=== PATIENT | male | born 1995 | race African-American/Black ===

== ENCOUNTER 2017-07-30 20:05 | Emergency (ER) | payer SELFPAY ==
[~2017-07-30] VITALS: Ht 182.9 cm; Wt 132.0 kg
[2017-07-30] MEDS ORDERED: SODIUM CHLORIDE 0.9% 1,000 ML IV ONE (23:00)
[2017-07-30] MEDS ORDERED: LEVETIRACETAM 500MG PREMIX 100 ML IV ONE (23:00)
[2017-07-31 01:06] VITALS: BP 136/86
== END 2017-07-31 01:12 | disposition home or self-care (01) ==
LOC: ER 20:05
DX: S00.512A Abrasion of oral cavity, initial encounter (principal); G40.409 Other generalized epilepsy and epileptic syndromes, not intractable, without status epilepticus; X58.XXXA Exposure to other specified factors, initial encounter; Y93.89 Activity, other specified; Y92.89 Other specified places as the place of occurrence of the external cause; Y99.8 Other external cause status
CPT/HCPCS: 96365; 99284; J1953; J7030

== ENCOUNTER 2021-03-22 08:51 | Emergency (ER) | payer OTHER ==
[~2021-03-22] VITALS: Ht 182.9 cm; Wt 109.0 kg
[2021-03-22] MEDS ORDERED: SODIUM CHLORIDE 0.9% 1,000 ML IV ONE (09:00)
[2021-03-22] MEDS ORDERED: LEVETIRACETAM 1000MG PREMIX 100 ML IV ONE (09:00)
[2021-03-22] MEDS ORDERED: LORAZEPAM 2MG/ML CPJ IV ONE (09:00)
[2021-03-22 09:25] LABS: BASOPHILS % 1.2 % (0.0-2.0); EOSINOPHILS % 0.1 % (0.0-5.0); HEMATOCRIT. 55.4 % (42.0-52.0); HEMOGLOBIN. 17.3 g/dL (14.0-18.0); LYMPHOCYTES % 21.5 % (20.0-50.0); MEAN CORPUSCULAR HEMOGLOBIN 23.9 pg (28.0-32.0); MEAN CORPUSCULAR VOLUME 76.7 fL (80.0-94.0); MEAN PLATELET VOLUME 8.6 fl (7.4-10.4); MONOCYTES % 7.9 % (2.0-8.0); NEUTROPHILS % 69.3 % (40.0-76.0); PLATELET 239 x1000/uL (130-400); RED BLOOD CELL COUNT 7.23 mill/uL (4.7-6.1); RED CELL DISTRIBUTION WIDTH 15.3 % (11.6-14.6)
[2021-03-22] MEDS ORDERED: LEVETIRACETAM 1000MG PREMIX 100 ML IV NR (09:30)
[2021-03-22 09:47] LABS: CHLORIDE 103 mEq/L (98-107)
[2021-03-22 09:51] LABS: ETHANOL BLOOD < 10 mg/dL
[2021-03-22] MEDS ORDERED: LEVE750T4 MT (11:22)
[2021-03-22 12:09] VITALS: BP 124/81
== END 2021-03-22 12:10 | disposition home or self-care (01) ==
LOC: ER 08:51
DX: G40.909 Epilepsy, unspecified, not intractable, without status epilepticus (principal); R00.0 Tachycardia, unspecified; Z20.822 Contact with and (suspected) exposure to COVID-19
CPT/HCPCS: 36415; 71045; 80053; 80320; 82962; 85025; 93005; 96374; 96375; 99285; C9803; J1953; J2060; J7030; U0003; U0005; Z7610; G0480

== ENCOUNTER 2025-01-19 14:15 | Emergency (ER) | payer OTHER ==
[~2025-01-19] VITALS: Ht 180.3 cm; Wt 105.0 kg
[~2025-01-19 14:15] MED LIST: LEVE750T4 MT
[2025-01-19 14:20] VITALS: O2SAT 98
[2025-01-19 15:10] LABS: BASOPHILS % 0.6 % (0.0-2.0); DIFFERENTIAL COMMENT 0; EOSINOPHILS % 0.9 % (0.0-5.0); HEMOGLOBIN. 14.7 g/dL (14.0-18.0); MEAN CORPUSCULAR HGB CONC 31.3 g/dL (31.0-37.0); MEAN CORPUSCULAR VOLUME 73.5 fL (80.0-94.0); MEAN PLATELET VOLUME 8.3 fl (7.4-10.4); MONOCYTES % 4.9 % (2.0-8.0); NEUTROPHILS % 67.6 % (40.0-76.0); PLATELET 235 x1000/uL (130-400); RED CELL DISTRIBUTION WIDTH 16.2 % (11.6-14.6); WHITE BLOOD COUNT 6.2 x1000/uL (4.5-11.0)
[2025-01-19] MEDS: LEVETIRACETAM 1000MG PREMIX 100 ML IV ONE (15:14)
[2025-01-19 15:17] LABS: CHLORIDE 109 mEq/L (98-107); SODIUM 141 mEq/L (136-145)
[2025-01-19 15:18] LABS: CARBON DIOXIDE 23 mEq/L (21-32)
[2025-01-19 15:19] LABS: CALCIUM 9.1 mg/dL (8.7-10.4)
[2025-01-19 15:24] LABS: CREATININE 1.1 mg/dL (0.6-1.3); GLUCOSE 107 mg/dL (70-105); UREA NITROGEN BLOOD 13 mg/dL (9-23)
[2025-01-19] MEDS ORDERED: LORAZEPAM 2MG/ML INJ IV ONE (16:00)
[2025-01-19] MEDS: MORPHINE SULFATE 4 MG/ML INJ (FOR IV/IM USE) IV ONE (16:23)
[2025-01-19] MEDS: LORAZEPAM 2MG/ML UD SYRINGE IV NR (16:56)
[2025-01-19] MEDS: LACOSAMIDE 100MG/10ML ORAL SOLN GT STA (18:15)
[2025-01-19 18:28] VITALS: TEMP 36.7
[2025-01-19 20:28] VITALS: BP 130/71; PULSE 80; RESP 18; O2SAT 94
== END 2025-01-19 20:51 | disposition short-term general hospital (02) ==
LOC: ER 14:15 → EDBEDREQ 15:53 → CANBEDREQ 18:31 → ER 20:51
DX: R56.9 Unspecified convulsions (principal); Z79.899 Other long term (current) drug therapy
CPT/HCPCS: 80048; 85025; 36415; 80339; 71045; 73030; 70450; 96365; 96375; 99285; J1953; J2060; J2270; Z7610

== ENCOUNTER 2025-08-12 18:10 | Emergency (ER) | payer OTHER ==
[~2025-08-12] VITALS: Ht 182.9 cm; Wt 100.0 kg
[2025-08-12] MEDS: KETOROLAC 15MG/ML VIAL IV ONE (18:27)
[2025-08-12] MEDS: SODIUM CHLORIDE 0.9% 1,000 ML IV ONE (18:27)
[2025-08-12] MEDS: LEVETIRACETAM 1000MG PREMIX 100 ML IV SCH (18:28)
[2025-08-12] MEDS: LORAZEPAM 2MG/ML UD SYRINGE IV SCH (18:53)
[2025-08-12 18:54] LABS: BASOPHILS % 0.7 % (0.0-2.0); EOSINOPHILS % 1.1 % (0.0-5.0); HEMATOCRIT. 52.5 % (42.0-52.0); HEMOGLOBIN. 15.5 g/dL (14.0-18.0); LYMPHOCYTES % 33.6 % (20.0-50.0); MEAN PLATELET VOLUME 8.8 fl (7.4-10.4); MONOCYTES % 8.9 % (2.0-8.0); NEUTROPHILS % 55.7 % (40.0-76.0); PLATELET 248 x1000/uL (130-400); RED BLOOD CELL COUNT 6.73 mill/uL (4.7-6.1); RED CELL DISTRIBUTION WIDTH 16.5 % (11.6-14.6)
[2025-08-12 19:05] LABS: CREATININE 1.4 mg/dL (0.6-1.3); UREA NITROGEN BLOOD 11 mg/dL (9-23)
[2025-08-12 19:06] LABS: ETHANOL BLOOD < 10 mg/dL (<10)
[2025-08-12 19:07] LABS: ASPARTATE AMINOTRANSFERASE 40 IU/L (<34); BILIRUBIN DIRECT 0.2 mg/dL (<=3.0); BILIRUBIN TOTAL 0.7 mg/dL (0.1-1.0); PROTEIN TOTAL 7.4 g/dL (6.0-8.3)
[2025-08-12] MEDS: MORPHINE SULFATE 4 MG/ML INJ (FOR IV/IM USE) IV NR (20:29)
[2025-08-12] MEDS ORDERED: LEVETIRACETAM 1,000MG in NACL 100ML PREMIX IV SCH (21:00)
[2025-08-12] MEDS ORDERED: PROPOFOL 200MG/20ML VIAL IV ONE (21:30)
[2025-08-12 23:25] VITALS: O2SAT 100
[2025-08-12] MEDS: PROPOFOL 200MG/20ML VIAL IV NR (23:37)
[2025-08-12 23:46] LABS: CLARITY URINE CLOUDY (CLEAR); COLOR URINE YELLOW (YELLOW); GLUCOSE URINE NEGATIVE (NEGATIVE); KETONES URINE NEGATIVE (NEGATIVE); LEUKOCYTE ESTERASE URINE NEGATIVE (NEGATIVE); NITRITE URINE NEGATIVE (NEGATIVE); OCCULT BLOOD URINE NEGATIVE (NEGATIVE); PH URINE 5.0 (4.5-8.0); PROTEIN URINE NEGATIVE (NEGATIVE); SPECIFIC GRAVITY URINE 1.012 (1.005-1.030); UROBILINOGEN URINE 0.2 E.U./dL (0.2-1.0)
[2025-08-12 23:56] LABS: *AMPHETAMINES SCREEN URINE NEGATIVE (NEGATIVE); *BARBITURATES SCREEN URINE NEGATIVE (NEGATIVE); *BENZODIAZEPINES SCREEN URINE NEGATIVE (NEGATIVE); *COCAINE SCREEN URINE NEGATIVE (NEGATIVE); CANNABINOID URINE SCREEN NEGATIVE (NEGATIVE); ECSTASY MDMA SCREEN URINE NEGATIVE (NEGATIVE); METHADONE URINE SCREEN NEGATIVE (NEGATIVE); OPIATES URINE SCREEN PRESUMPTIVE POSITIVE (NEGATIVE); PHENCYCLIDINE URINE SCREEN NEGATIVE (NEGATIVE)
[2025-08-13 00:40] VITALS: O2SAT 97
[2025-08-13] MEDS ORDERED: NAPR-681 MT (01:08)
[2025-08-13 01:09] VITALS: O2SAT 96
[2025-08-13] MEDS: PROPOFOL 200MG/20ML VIAL IV ONE (01:30)
[2025-08-13 01:53] VITALS: BP 145/94; PULSE 106; RESP 20; TEMP 36.7; O2SAT 99
[2025-08-13 05:31] LABS: BACTERIA URINE NONE SEEN; RBC URINE 0-2 /hpf (0-2); SQUAMOUS EPITHELIAL CELL URINE NONE SEEN /lpf (RARE/1+)
== END 2025-08-13 02:13 | disposition home or self-care (01) ==
LOC: ER 18:10
DX: S43.015A Anterior dislocation of left humerus, initial encounter (principal); G40.909 Epilepsy, unspecified, not intractable, without status epilepticus; Z79.1 Long term (current) use of non-steroidal anti-inflammatories (NSAID); Z79.899 Other long term (current) drug therapy; X58.XXXA Exposure to other specified factors, initial encounter; Y93.89 Activity, other specified; Y92.89 Other specified places as the place of occurrence of the external cause; Y99.8 Other external cause status
CPT/HCPCS: 80076; 80305; 80048; 81003; 80320; 85025; 36415; 73030 ×4; 93005; 98960; 23650; 96361; 96365; 96375; 99152; 99285; J1953; J1885; J2060; J2704 ×2; J2270; J7030; Z7610 ×2; A4615; 94070; G0480